=== PATIENT | female | born 1940 | race Caucasian/White ===

== ENCOUNTER 2021-03-07 13:27 | Inpatient (IN) | payer MEDICARE, OTHER ==
[~2021-03-07] VITALS: Ht 170.2 cm; Wt 79.4 kg
--- NOTE | 2021-03-07 13:40 | NUR ---
at bedside for assessment
[2021-03-07 14:10] LABS: *BILIRUBIN,URIN NEGATIVE (NEGATIVE); *BLOOD, URINE NEGATIVE (NEGATIVE); *CLARITY,URINE SLIGHTLY CLOUDY (CLEAR); *COLOR,URINE YELLOW (YELLOW); *KETONES,URINE NEGATIVE (NEGATIVE); *UROBILINOGEN,URINE 0.2 E.U./dl (NORMAL); LEUKOCYTE ESTERASE ,URINE 2+ (NEGATIVE); NITRITE, URINE NEGATIVE (NEGATIVE); UGLUCOSE NEGATIVE (NEGATIVE)
[2021-03-07 14:11] LABS: BASOPHILS # (AUTO) 0.1 K/uL (0.0-8.0); BASOPHILS % (AUTO) 0.9 % (0.0-2.0); EOSINOPHILS # (AUTO) 0.2 K/uL (0.0-0.7); EOSINOPHILS % (AUTO) 2.4 % (0.0-7.0); HEMATOCRIT 36.2 % (31.2-41.9); LYMPHOCYTES # (AUTO) 3.2 K/uL (20.0-40.0); LYMPHOCYTES % (AUTO) 37.3 % (20.5-51.5); MEAN CORPUSCULAR HEMOGLOBIN 30.6 uug (24.7-32.8); MEAN CORPUSCULAR HGB CONC 33 g/dL (32.3-35.6); MEAN CORPUSCULAR VOLUME 91.9 fL (75.5-95.3); MONOCYTES # (AUTO) 0.8 K/uL (2.0-10.0); MONOCYTES % (AUTO) 9.7 % (0.0-11.0); NEUTROPHILS # (AUTO) 4.3 K/uL (1.8-8.9); NEUTROPHILS % (AUTO) 49.7 % (38.5-71.5); PLATELET COUNT (AUTO) 338 K/uL (179-408); RED BLOOD CELL COUNT(AUTO) 3.94 MIL/uL (3.63-4.92); WHITE BLOOD COUNT (AUTO) 8.5 K/uL (3.8-11.8)
[2021-03-07] MEDS ORDERED: CALC500T13 PO (14:13)
[2021-03-07] MEDS ORDERED: MONT10TA33 PO (14:13)
[2021-03-07] MEDS ORDERED: ATOR40TA PO (14:13)
[2021-03-07] MEDS ORDERED: DONE5TAB7 PO (14:13)
[2021-03-07] MEDS ORDERED: PHEN-704 PO (14:13)
[2021-03-07] MEDS ORDERED: MELA1TAB17 PO (14:13)
[2021-03-07] MEDS ORDERED: CRAN450T9 PO (14:13)
[2021-03-07] MEDS ORDERED: SENN-261 PO (14:13)
[2021-03-07] MEDS ORDERED: FENO54TA PO (14:13)
[2021-03-07] MEDS ORDERED: METO-357 PO (14:13)
[2021-03-07] MEDS ORDERED: ASCO500T10 PO (14:13)
[2021-03-07] MEDS ORDERED: DOXA4TAB2 PO (14:13)
[2021-03-07] MEDS ORDERED: DIVA250T4 PO (14:13)
[2021-03-07 14:21] LABS: *AMPHETAMINE, URINE NEGATIVE (NEGATIVE); *CANNABINOID, URINE NEGATIVE (NEGATIVE); *COCCAINE, URINE NEGATIVE (NEGATIVE); *OPIATE, URINE NEGATIVE (NEGATIVE); *PHENCYCLIDINE SCREEN,URINE NEGATIVE (NEGATIVE)
[2021-03-07 14:24] LABS: CARBON DIOXIDE 23 mmol/L (21-32); CHLORIDE 102 mmol/L (98-107); CREATININE 1.2 mg/dL (0.6-1.3); GLUCOSE 103 mg/dL (74-106); POTASSIUM 4.3 mmol/L (3.5-5.1); UREA NITROGEN, BLOOD 22 mg/dL (7-18)
[2021-03-07 14:30] LABS: ACETAMINOPHEN < 2.0 ug/mL (10-30); ALANINE AMINOTRANSFERASE 29 U/L (14-59); ALKALINE PHOSPHATASE 42 U/L (50-136); ASPARTATE AMINOTRANSFERASE 22 U/L (15-37); BILIRUBIN,DIRECT 0.1 mg/dL (0.0-0.2); BILIRUBIN,TOTAL 0.4 mg/dL (0.2-1.0); ETHANOL < 3 MG/DL (0-0); TOTAL PROTEIN, SERUM 7.6 g/dL (6.4-8.2)
--- NOTE | 2021-03-07 16:20 | NUR ---
Yari womack in [facility] - 03/07/21 at 1630 by CHANDRIKA JALEN Young, evaluated pt, is writing a 2380 hold for pt.
[2021-03-07 16:25] LABS: BACTERIA,URINE FEW /HPF (NONE SEEN); RBC,URINE 0-3 /HPF (0-3); SQUAMOUS EPITHELIAL CELL,UR FEW /HPF (NONE SEEN); WBC,URINE TNTC /HPF (0-3)
[2021-03-07] MEDS ORDERED: MAG HYDROX/AL HYDROX/SIMETH 30 ML LIQUID UDC PO PRN (16:45)
[2021-03-07] MEDS ORDERED: MAGNESIUM HYDROXIDE 30 ML LIQUID UDC PO PRN (16:45)
--- NOTE | 2021-03-07 16:50 | NUR ---
Gps/Rn Complex Care- Received report from ER Nurse Teresa. Admitted 80 years old female from ER via wheel chair. Alert, oriented x 2, anxious, worried, reassured. Oriented to unit settings. Ambulated on the hallway to the dinning room , gait slightly unsteady r/t gen weakness. Patient denies any S.I/no H.I. Patient was swabbed for MRSA . Noted forgetfulness, verbal cues was given. Per patient, wants Vilma(daughter) as the route driver salesperson, but she does not remember the phone number, patient verbalized feelings of getting frustrated when she does note remember things. Safety reviewed. Routine admission care .
[2021-03-07 17:30] VITALS: BP 157/70
--- NOTE | 2021-03-07 17:30 | NUR ---
Pt. admitted to MHU, under care of Dr. Silver Belongs List completed and belongings sent
[2021-03-07] MEDS: CEphaleXIN 500 MG CAPSULE PO SCH (19:09)
[2021-03-07 20:06] VITALS: BP 117/63
[2021-03-07] MEDS: TEMAZEPAM 7.5 MG CAPSULE PO PRN (21:07)
[2021-03-07] MEDS: ACETAMINOPHEN 325 MG TABLET PO PRN (21:07)
[2021-03-07] MEDS ORDERED: PHENAZOPYRIDINE HCL 100 MG TABLET PO PRN (22:00)
--- NOTE | 2021-03-08 06:25 | NUR ---
PATIENT ALERT ORIENTED, NO COMPLAIN OF PAIN AT THIS TIME. PATIENT ASSISTED WITH ADL'S, PANTS GOT WET, ASSIST WITH HERMILO CARE, GIVEN CLEAN PANTS, AND BED LINEN WAS CHANGED. PATIENT HAS EPISODE OF CRYING, DON'T WANT STAY HERE. PATIENT WAS REORIENTED WHY SHE'S HERE, AND ABLE TO UNDERSTAND. PATIENT SLEPT MOST OF THE NIGHT, CONT TO MONITOR.
[2021-03-08 07:30] VITALS: BP 158/79
[2021-03-08] MEDS: CALCIUM CARBONATE 500 MG TAB.CHEW PO SCH ×3 (08:51→17:37)
[2021-03-08 08:52] LABS: BILIRUBIN,TOTAL 0.4 mg/dL (0.2-1.0); CREATININE 1.3 mg/dL (0.6-1.3); POTASSIUM 4.5 mmol/L (3.5-5.1)
[2021-03-08] MEDS: CEphaleXIN 500 MG CAPSULE PO SCH ×2 (08:53→17:36)
[2021-03-08] MEDS: DONEPEZIL 5 MG TABLET PO SCH (08:54)
[2021-03-08] MEDS: MONTELUKAST SODIUM 10 MG TABLET PO SCH (08:54)
[2021-03-08] MEDS: SENNOSIDES 1 TABLET PO SCH (08:54)
[2021-03-08] MEDS: METOPROLOL SUCCINATE XL 50 MG TAB.SR.24H PO SCH (08:54)
[2021-03-08] MEDS: ASCORBIC ACID 500 MG TABLET PO SCH ×2 (08:54→17:36)
[2021-03-08] MEDS: DOXAZOSIN 2 MG TABLET PO SCH (08:55)
--- NOTE | 2021-03-08 10:00 | NUR ---
Gps/Multi Spindle Operator- Claimed she slept fairly well last night, reviewed am meds, verbalized understanding , claimed had crying spells last night , bed not comfortable, and she's cold offered , offered extra blankets. Stayed up in her wheel chair, claimed she's hopping her roommate does not come back , claimed she does not like her roommate she came from the same facility where she came from per pt. Encouraged staying in the activity room during the day time.
[2021-03-08] MEDS: DIVALPROEX 250 MG TABLET.DR PO SCH ×2 (12:20→17:37)
[2021-03-08] MEDS: FENOFIBRATE NANOCRYSTALLIZED 48 MG TABLET PO SCH (12:20)
--- NOTE | 2021-03-08 12:56 | NUR ---
Gps/forklift supervisor- Evaluated by PWilderT. ambulated with FWW. , will continue to follow patient for tx.. Teachey self around with her wheel chair, cooperative with staff, meds. compliant
[2021-03-08 16:00] VITALS: BP 122/74
[2021-03-08] MEDS: ATORVASTATIN 40 MG TABLET PO SCH (17:36)
[2021-03-08 20:15] VITALS: BP 139/60
[2021-03-08] MEDS: ACETAMINOPHEN 325 MG TABLET PO PRN (20:17)
[2021-03-08] MEDS: LORAZEPAM 0.5 MG TABLET PO PRN (21:37)
[2021-03-08] MEDS: TEMAZEPAM 7.5 MG CAPSULE PO PRN (21:57)
--- NOTE | 2021-03-09 06:35 | NUR ---
PT USES HER ON WHEELCHAIR. PT CAN AMBULATE STEADY TO HER WHEELCHAIR TO HER BED. PT IN NO ACUTE DISTRESS. WILL CONTINUE TO MONITOR.
--- NOTE | 2021-03-09 06:36 | NUR ---
PT SLEPT 6 H.PT IN NO ACUTE DISTRESS. PRESCRIBED MEDICATION GIVEN AND PT TOLERATED IT WELL.PT GIVEN TYLENOL PRN AT 2017H FOR PAIN. PT GIVEN ATIVAN PRN AT 2136H FOR AGITATION AND RESTLESSNESS. RESTORIL PRN GIVEN AT 2156H PER PT REQUEST.PT VITAL SIGNS STABLE. AFTER AN HOUR PT IS CALMER AND ON HER BED, TALKING WITH HER ROOMMATE. SAFETY AND COMFORT PROVIDED. ALL NEEDS ARE MET. WILL ENDORSE TO INCOMING NURSE FOR CONTINUITY OF CARE.
[2021-03-09 07:30] VITALS: BP 162/78
[2021-03-09] MEDS: METOPROLOL SUCCINATE XL 50 MG TAB.SR.24H PO SCH (09:12)
[2021-03-09] MEDS: ASCORBIC ACID 500 MG TABLET PO SCH ×2 (09:12→17:17)
[2021-03-09] MEDS: CEphaleXIN 500 MG CAPSULE PO SCH ×2 (09:12→17:17)
[2021-03-09] MEDS: DOXAZOSIN 2 MG TABLET PO SCH (09:16)
[2021-03-09] MEDS: DONEPEZIL 5 MG TABLET PO SCH (09:16)
[2021-03-09] MEDS: FENOFIBRATE NANOCRYSTALLIZED 48 MG TABLET PO SCH (09:16)
[2021-03-09] MEDS: DIVALPROEX 250 MG TABLET.DR PO SCH ×3 (09:16→17:17)
[2021-03-09] MEDS: SENNOSIDES 1 TABLET PO SCH (09:16)
[2021-03-09] MEDS: MONTELUKAST SODIUM 10 MG TABLET PO SCH (09:16)
[2021-03-09] MEDS: CALCIUM CARBONATE 500 MG TAB.CHEW PO SCH ×3 (09:24→17:17)
[2021-03-09 16:00] VITALS: BP 138/75
[2021-03-09] MEDS: ATORVASTATIN 40 MG TABLET PO SCH (17:17)
[2021-03-09 20:01] VITALS: BP 142/72
--- NOTE | 2021-03-10 07:09 | NUR ---
PATIENT ALERT, COOPERATIVE WITH CARE AND MEDICATIONS. PATIENT SLEPT FOR 6 HRS, HAD SHOWER THIS MORNING, AND HAD BM. PATIENT HAS EPISODE OF SADNESS DUE TO ADMITTED HERE IN MHU, REDIRECT AND REORIENT PATIENT THAT SHE HERE TEMPORARILY, ATTEND ALL NEEDS.
[2021-03-10 07:30] VITALS: BP 105/66
[2021-03-10] MEDS: CEphaleXIN 500 MG CAPSULE PO SCH ×2 (08:34→16:19)
[2021-03-10] MEDS: DIVALPROEX 250 MG TABLET.DR PO SCH ×3 (08:34→16:19)
[2021-03-10] MEDS: ASCORBIC ACID 500 MG TABLET PO SCH ×2 (08:34→16:20)
[2021-03-10] MEDS: DONEPEZIL 5 MG TABLET PO SCH (08:35)
[2021-03-10] MEDS: CALCIUM CARBONATE 500 MG TAB.CHEW PO SCH ×3 (08:35→16:20)
[2021-03-10] MEDS: FENOFIBRATE NANOCRYSTALLIZED 48 MG TABLET PO SCH (08:39)
[2021-03-10] MEDS: MONTELUKAST SODIUM 10 MG TABLET PO SCH (08:39)
[2021-03-10] MEDS: METOPROLOL SUCCINATE XL 50 MG TAB.SR.24H PO SCH ×2 (08:40→08:51)
[2021-03-10] MEDS: SENNOSIDES 1 TABLET PO SCH (08:46)
[2021-03-10] MEDS: DOXAZOSIN 2 MG TABLET PO SCH (08:50)
--- NOTE | 2021-03-10 09:13 | NUR ---
Firearms Report: Circle Shear Operator completed and submitted a [employer] firearms report for 5150 grave disability certifications. A copy of report has been placed in patient chart.
[2021-03-10] MEDS: ACETAMINOPHEN 325 MG TABLET PO PRN ×2 (09:44→23:37)
--- NOTE | 2021-03-10 10:57 | NUR ---
JALEN Initial Discharge Plan: Patient currently resides at [facility] [place] [address] ([phone]) and would like to return upon discharge. JALEN spoke with Alesha from the facility who confirmed that patient is welcome back at discharge. JALEN will continue to work with patient, family, and MD to ensure a safe and proper discharge plan.
--- NOTE | 2021-03-10 10:58 | NUR ---
JALEN SNF Contact: JALEN spoke with Alesha from [facility] ([phone]) who confirmed patient is welcome back upon discharge.
--- NOTE | 2021-03-10 11:10 | NUR ---
JALEN Family Contact: JALEN spoke with patient's daughterAlyse ([phone]) and discussed treatment and discharge plan.
[2021-03-10 15:46] VITALS: BP 136/74
[2021-03-10] MEDS: ATORVASTATIN 40 MG TABLET PO SCH ×2 (16:19→17:03)
[2021-03-10 19:30] VITALS: BP 137/64
[2021-03-10] MEDS: TEMAZEPAM 7.5 MG CAPSULE PO PRN (23:38)
--- NOTE | 2021-03-11 05:54 | NUR ---
Shift End Report: Been in the hallway most of the night in her wheel chair, refused to get inside her room, thinking/knowing that her roommate still awake. Sleeping medication was given and Tylenol for her lower back pain, both effective. Slept 5 hours. Continue care as planned.
[2021-03-11 07:30] VITALS: BP 122/74
--- NOTE | 2021-03-11 07:30 | NUR ---
Patient received sitting in wheelchair in TV room. Calm and cooperative. Patient started tearing up when explaining how happy she was to have a roommate from her facility.
[2021-03-11] MEDS: DONEPEZIL 5 MG TABLET PO SCH (08:49)
[2021-03-11] MEDS: METOPROLOL SUCCINATE XL 50 MG TAB.SR.24H PO SCH (08:49)
[2021-03-11] MEDS: DIVALPROEX 250 MG TABLET.DR PO SCH ×3 (08:49→16:56)
[2021-03-11] MEDS: ASCORBIC ACID 500 MG TABLET PO SCH ×2 (08:49→16:56)
[2021-03-11] MEDS: CEphaleXIN 500 MG CAPSULE PO SCH ×2 (08:49→16:56)
[2021-03-11] MEDS: DOXAZOSIN 2 MG TABLET PO SCH (08:50)
[2021-03-11] MEDS: MONTELUKAST SODIUM 10 MG TABLET PO SCH (08:50)
[2021-03-11] MEDS: FENOFIBRATE NANOCRYSTALLIZED 48 MG TABLET PO SCH (08:50)
[2021-03-11] MEDS: CALCIUM CARBONATE 500 MG TAB.CHEW PO SCH ×3 (08:50→16:56)
[2021-03-11] MEDS: SENNOSIDES 1 TABLET PO SCH (08:57)
[2021-03-11 15:25] VITALS: BP 111/63
[2021-03-11] MEDS: ATORVASTATIN 40 MG TABLET PO SCH (17:00)
--- NOTE | 2021-03-11 18:20 | NUR ---
Patient has been calm and compliant throughout shift. Patient has spend most of her time in the dinning room. She states she is not comfortable with roommate. Patient is compliant with medications. Safety measures implemented. Will endorse to next shift.
[2021-03-11 20:08] VITALS: BP 121/61
[2021-03-11] MEDS: TEMAZEPAM 7.5 MG CAPSULE PO PRN (21:40)
--- NOTE | 2021-03-12 01:50 | NUR ---
RECEIVED PATIENT IN ACTIVITY ROOM IN A W/C. CALM AND COOPERATIVE WITH CARE AND MEDICATIONS. CLAIMS THE ROOMMATE DEPRIVES HER OF SLEEP SHE KEEPS TALKING. RE DIRECTED VISUAL CHECKS MADE ON HER FOR SAFETY. WILL CONTINUE TO MONITOR.
--- NOTE | 2021-03-12 05:58 | NUR ---
SLEPT WELL FOR 7;00 HOURS.
[2021-03-12 07:30] VITALS: BP 138/66
[2021-03-12] MEDS: CALCIUM CARBONATE 500 MG TAB.CHEW PO SCH ×3 (08:54→16:51)
[2021-03-12] MEDS: MONTELUKAST SODIUM 10 MG TABLET PO SCH (08:54)
[2021-03-12] MEDS: CEphaleXIN 500 MG CAPSULE PO SCH ×2 (08:54→16:39)
[2021-03-12] MEDS: ASCORBIC ACID 500 MG TABLET PO SCH ×2 (08:54→16:39)
[2021-03-12] MEDS: DOXAZOSIN 2 MG TABLET PO SCH (08:55)
[2021-03-12] MEDS: FENOFIBRATE NANOCRYSTALLIZED 48 MG TABLET PO SCH (08:55)
[2021-03-12] MEDS: DIVALPROEX 250 MG TABLET.DR PO SCH ×3 (08:55→16:39)
[2021-03-12] MEDS: METOPROLOL SUCCINATE XL 50 MG TAB.SR.24H PO SCH (08:55)
[2021-03-12] MEDS: DONEPEZIL 5 MG TABLET PO SCH (08:55)
[2021-03-12] MEDS: SENNOSIDES 1 TABLET PO SCH (08:57)
--- NOTE | 2021-03-12 12:49 | NUR ---
Court Hearing: Patient's court hearing was today and it was upheld for GD.
[2021-03-12 16:00] VITALS: BP 142/66
[2021-03-12] MEDS: ATORVASTATIN 40 MG TABLET PO SCH (17:13)
[2021-03-12 20:33] VITALS: BP 158/67
--- NOTE | 2021-03-12 22:00 | NUR ---
Patient refused to sleep in her room. Patient does get alone with roommate, reassure patient that roommate will not harm her, but refused .. Prefer to stay in the nursing station, given patient reclining chair to that she can sleep. Patient given melatonin as ordered, no complain of pain. cont to monitor.
--- NOTE | 2021-03-12 23:20 | NUR ---
PATIENT REFUSED RESTORIL MEDICATION PREFER MELATONIN, AND REQUEST FOR ARTIFICIAL TEARS. NOTIFY RIOS GUAMAN WITH ORDER.
[2021-03-12] MEDS ORDERED: POLYVINYL ALCOHOL OPHT DROPS 15 ML BOTTLE EACHEYE PRN (23:30)
[2021-03-12] MEDS: MELATONIN 3 MG TABLET PO PRN (23:56)
--- NOTE | 2021-03-13 05:59 | NUR ---
Patient slept for 3 hrs. Patient cooperative with medication and care. Patient was assisted with toileting, cont to monitor.
[2021-03-13 07:30] VITALS: BP 160/88
[2021-03-13 08:29] LABS: BASOPHILS # (AUTO) 0.1 K/uL (0.0-8.0); BASOPHILS % (AUTO) 0.9 % (0.0-2.0); EOSINOPHILS # (AUTO) 0.3 K/uL (0.0-0.7); EOSINOPHILS % (AUTO) 3.7 % (0.0-7.0); HEMATOCRIT 38.4 % (31.2-41.9); HEMOGLOBIN 12.7 g/dL (10.9-14.3); LYMPHOCYTES % (AUTO) 39.2 % (20.5-51.5); MEAN CORPUSCULAR HEMOGLOBIN 30.5 uug (24.7-32.8); MEAN CORPUSCULAR HGB CONC 33 g/dL (32.3-35.6); MEAN CORPUSCULAR VOLUME 91.7 fL (75.5-95.3); MONOCYTES # (AUTO) 0.8 K/uL (2.0-10.0); MONOCYTES % (AUTO) 10.2 % (0.0-11.0); NEUTROPHILS # (AUTO) 3.6 K/uL (1.8-8.9); PLATELET COUNT (AUTO) 329 K/uL (179-408); RED BLOOD CELL COUNT(AUTO) 4.18 MIL/uL (3.63-4.92); WHITE BLOOD COUNT (AUTO) 7.8 K/uL (3.8-11.8)
[2021-03-13 08:32] LABS: BILIRUBIN,TOTAL 0.4 mg/dL (0.2-1.0); CREATININE 1.3 mg/dL (0.6-1.3); POTASSIUM 3.7 mmol/L (3.5-5.1); TOTAL PROTEIN, SERUM 8.3 g/dL (6.4-8.2)
[2021-03-13] MEDS: CALCIUM CARBONATE 500 MG TAB.CHEW PO SCH ×3 (08:36→17:40)
[2021-03-13] MEDS: METOPROLOL SUCCINATE XL 50 MG TAB.SR.24H PO SCH (08:37)
[2021-03-13] MEDS: SENNOSIDES 1 TABLET PO SCH (08:37)
[2021-03-13] MEDS: DIVALPROEX 250 MG TABLET.DR PO SCH ×3 (08:37→17:41)
[2021-03-13] MEDS: CEphaleXIN 500 MG CAPSULE PO SCH ×2 (08:37→17:40)
[2021-03-13] MEDS: MONTELUKAST SODIUM 10 MG TABLET PO SCH (08:37)
[2021-03-13] MEDS: FENOFIBRATE NANOCRYSTALLIZED 48 MG TABLET PO SCH (08:37)
[2021-03-13] MEDS: DOXAZOSIN 2 MG TABLET PO SCH (08:38)
[2021-03-13] MEDS: ASCORBIC ACID 500 MG TABLET PO SCH ×2 (08:38→17:41)
[2021-03-13] MEDS: DONEPEZIL 5 MG TABLET PO SCH (08:38)
--- NOTE | 2021-03-13 13:00 | NUR ---
Gps/Spareribs Trimmer- Stayed up in her own wheel chair, wheeling self around the unit , stayed in the activity room most of the time. attending her group therapy. Had bladder incontinence , wears diaper, offered to be toileted at a regular intervals .
[2021-03-13 16:29] VITALS: BP 109/64
--- NOTE | 2021-03-13 16:47 | NUR ---
Gps/Senior Systems Programmer- Remains up in her wheel chair, refusing to go to her room to rest, claimed she does not want to see her roommate, claimed " she's trying to brenda me"
[2021-03-13] MEDS: ATORVASTATIN 40 MG TABLET PO SCH (17:40)
[2021-03-13 20:08] VITALS: BP 142/68
--- NOTE | 2021-03-13 21:21 | NUR ---
Asleep upon initial rounds. No acute distress noted. Patient easily arousable. VSS. No agitation noted. Will monitor patient. Needs attended. Kept comfortable.
[2021-03-14] MEDS: LORAZEPAM 0.5 MG TABLET PO PRN ×2 (02:49→21:42)
--- NOTE | 2021-03-14 06:16 | NUR ---
End of shift notes:Quiet night. Calm and cooperative. No behavioral issues noted. Slept for 5 hours. VSS. Had shower this am. Attended to needs. Kept comfortable.
[2021-03-14 07:30] VITALS: BP 100/48
[2021-03-14] MEDS: DIVALPROEX 250 MG TABLET.DR PO SCH ×3 (08:54→16:39)
[2021-03-14] MEDS: ASCORBIC ACID 500 MG TABLET PO SCH ×2 (08:54→16:39)
[2021-03-14] MEDS: CEphaleXIN 500 MG CAPSULE PO SCH (08:54)
[2021-03-14] MEDS: CALCIUM CARBONATE 500 MG TAB.CHEW PO SCH ×3 (08:54→16:40)
[2021-03-14] MEDS: DOXAZOSIN 2 MG TABLET PO SCH (08:55)
[2021-03-14] MEDS: DONEPEZIL 5 MG TABLET PO SCH (08:55)
[2021-03-14] MEDS: MONTELUKAST SODIUM 10 MG TABLET PO SCH (08:56)
[2021-03-14] MEDS: SENNOSIDES 1 TABLET PO SCH (08:56)
[2021-03-14] MEDS: METOPROLOL SUCCINATE XL 50 MG TAB.SR.24H PO SCH (08:57)
[2021-03-14] MEDS: FENOFIBRATE NANOCRYSTALLIZED 48 MG TABLET PO SCH (09:09)
[2021-03-14 16:13] VITALS: BP 140/71
[2021-03-14] MEDS: ATORVASTATIN 40 MG TABLET PO SCH (17:11)
[2021-03-14 20:19] VITALS: BP 142/62
[2021-03-14] MEDS: ACETAMINOPHEN 325 MG TABLET PO PRN (21:42)
[2021-03-14] MEDS: MELATONIN 3 MG TABLET PO PRN (21:42)
--- NOTE | 2021-03-15 06:09 | NUR ---
Patient received AOx4 sitting in her wheelchair in the hallway, no distress noted. Pt denies SI, HI, AH. or VH. Very pleasant and cooperative with this freelance copywriter. Melatonin requested for sleep aid prior to going to bed, to which patient slept a total of 7.00 hours. Safety precautions kept in place throughout the shift. No other issues or concerns at this time, will endorse to day shift.
[2021-03-15 07:30] VITALS: BP 116/84
--- NOTE | 2021-03-15 07:30 | NUR ---
received report from MELVA trejo. All questions, comments, and concerns were addressed. received patient awake in assigned room.
[2021-03-15] MEDS: CALCIUM CARBONATE 500 MG TAB.CHEW PO SCH ×3 (08:08→16:48)
[2021-03-15] MEDS: MONTELUKAST SODIUM 10 MG TABLET PO SCH (08:09)
[2021-03-15] MEDS: DIVALPROEX 250 MG TABLET.DR PO SCH ×3 (08:09→16:48)
[2021-03-15] MEDS: DONEPEZIL 5 MG TABLET PO SCH (08:09)
[2021-03-15] MEDS: ASCORBIC ACID 500 MG TABLET PO SCH ×2 (08:09→16:48)
[2021-03-15] MEDS: SENNOSIDES 1 TABLET PO SCH (08:09)
[2021-03-15] MEDS: METOPROLOL SUCCINATE XL 50 MG TAB.SR.24H PO SCH (08:09)
[2021-03-15] MEDS: DOXAZOSIN 2 MG TABLET PO SCH (08:09)
[2021-03-15] MEDS: FENOFIBRATE NANOCRYSTALLIZED 48 MG TABLET PO SCH (08:17)
[2021-03-15 15:33] VITALS: BP 147/76
--- NOTE | 2021-03-15 17:58 | NUR ---
patient is alert and oriented. patient is anxious, depressed, sad, and very needy and intrusive with staff. patient has poor boundaries with staff. patient requires redirection and reality orientation. patient denies SI/HI, denies AH/VH. patient is adherent with medication, no adverse reaction noted. patient ambulates in wheelchair independently. patient provided with education about impulse control and to communicate needs to staff appropriately. patient encouraged to participate in the unit therapeutic milieu.
[2021-03-15] MEDS: ATORVASTATIN 40 MG TABLET PO SCH (18:03)
[2021-03-15] MEDS: MELATONIN 3 MG TABLET PO PRN (20:14)
[2021-03-15] MEDS: LORAZEPAM 0.5 MG TABLET PO PRN (20:14)
[2021-03-15 20:28] VITALS: BP 124/48
--- NOTE | 2021-03-16 06:00 | NUR ---
Received Pt resting in the shereen chair in the hallway. A+Ox3, anxious and upset on approach. Pt verbalized she was "having a hard time feeling safe and sleeping in my room because I'm scared of my roommate". Pt was move to an unoccupied room and expressed relief. Pt reports "some" depression nut denies SI and verbally contracts for safety. Prn Melatonin administered for insomnia and Ativan 0.5mg for anxiety, both with good effect. Denies pain, VS stable.
[2021-03-16 07:07] LABS: CREATININE 1.3 mg/dL (0.6-1.3); POTASSIUM 4.2 mmol/L (3.5-5.1)
[2021-03-16 08:00] VITALS: BP 161/79
[2021-03-16] MEDS: MONTELUKAST SODIUM 10 MG TABLET PO SCH (08:02)
[2021-03-16] MEDS: CALCIUM CARBONATE 500 MG TAB.CHEW PO SCH ×3 (08:02→16:35)
[2021-03-16] MEDS: ASCORBIC ACID 500 MG TABLET PO SCH ×2 (08:03→16:35)
[2021-03-16] MEDS: SENNOSIDES 1 TABLET PO SCH (08:04)
[2021-03-16] MEDS: METOPROLOL SUCCINATE XL 50 MG TAB.SR.24H PO SCH (08:04)
[2021-03-16] MEDS: FENOFIBRATE NANOCRYSTALLIZED 48 MG TABLET PO SCH (08:04)
[2021-03-16] MEDS: DIVALPROEX 250 MG TABLET.DR PO SCH ×3 (08:04→16:35)
[2021-03-16] MEDS: DONEPEZIL 5 MG TABLET PO SCH (08:04)
[2021-03-16] MEDS: DOXAZOSIN 2 MG TABLET PO SCH (08:05)
[2021-03-16 16:00] VITALS: BP 130/62
[2021-03-16] MEDS: ATORVASTATIN 40 MG TABLET PO SCH (16:36)
[2021-03-16 20:00] VITALS: BP 149/83
[2021-03-17 07:03] LABS: BASOPHILS # (AUTO) 0.1 K/uL (0.0-8.0); BASOPHILS % (AUTO) 0.8 % (0.0-2.0); EOSINOPHILS # (AUTO) 0.3 K/uL (0.0-0.7); EOSINOPHILS % (AUTO) 3.7 % (0.0-7.0); HEMATOCRIT 33.8 % (31.2-41.9); HEMOGLOBIN 11.7 g/dL (10.9-14.3); LYMPHOCYTES # (AUTO) 2.6 K/uL (20.0-40.0); LYMPHOCYTES % (AUTO) 33.2 % (20.5-51.5); MEAN CORPUSCULAR HEMOGLOBIN 31.2 uug (24.7-32.8); MEAN CORPUSCULAR HGB CONC 35 g/dL (32.3-35.6); MEAN CORPUSCULAR VOLUME 90.5 fL (75.5-95.3); MONOCYTES # (AUTO) 0.8 K/uL (2.0-10.0); MONOCYTES % (AUTO) 10.2 % (0.0-11.0); NEUTROPHILS % (AUTO) 52.1 % (38.5-71.5); PLATELET COUNT (AUTO) 278 K/uL (179-408); RED BLOOD CELL COUNT(AUTO) 3.73 MIL/uL (3.63-4.92); WHITE BLOOD COUNT (AUTO) 7.7 K/uL (3.8-11.8)
[2021-03-17 07:14] LABS: BILIRUBIN,TOTAL 0.3 mg/dL (0.2-1.0); CREATININE 1.3 mg/dL (0.6-1.3); MAGNESIUM 1.8 mg/dL (1.8-2.4); PHOSPHOROUS 3.1 mg/dL (2.5-4.9); TOTAL PROTEIN, SERUM 6.7 g/dL (6.4-8.2)
[2021-03-17 07:30] VITALS: BP 130/101
--- NOTE | 2021-03-17 07:30 | NUR ---
Received report from MELVA Gould. All questions, comments, and concerns. Received patient awake, alert and oriented in assigned room. Bed is in low and locked position.
[2021-03-17] MEDS: SENNOSIDES 1 TABLET PO SCH (08:00)
[2021-03-17] MEDS: DIVALPROEX 250 MG TABLET.DR PO SCH ×3 (08:00→16:34)
[2021-03-17] MEDS: DOXAZOSIN 2 MG TABLET PO SCH (08:00)
[2021-03-17] MEDS: DONEPEZIL 5 MG TABLET PO SCH (08:00)
[2021-03-17] MEDS: ASCORBIC ACID 500 MG TABLET PO SCH ×2 (08:00→16:34)
[2021-03-17] MEDS: METOPROLOL SUCCINATE XL 50 MG TAB.SR.24H PO SCH (08:01)
[2021-03-17] MEDS: MONTELUKAST SODIUM 10 MG TABLET PO SCH (08:02)
[2021-03-17] MEDS: FENOFIBRATE NANOCRYSTALLIZED 48 MG TABLET PO SCH (08:02)
[2021-03-17] MEDS: CALCIUM CARBONATE 500 MG TAB.CHEW PO SCH ×3 (08:02→16:34)
--- NOTE | 2021-03-17 11:06 | NUR ---
patient is alert and oriented. patient is anxious, appears depressed and sad. patient is needy and intrusive, patient has poor boundaries with staff. patient denies SI/HI, denies AH/VH. patient is adherent with medication, no adverse reaction noted. patient ambulates in wheelchair independently. she is able to tolerate food and fluids. able to perform self care and ADL's independently. patient provided with education about impulse control and to communicate needs to staff appropriately. patient encouraged to participate in the unit therapeutic milieu.
--- NOTE | 2021-03-17 12:53 | NUR ---
JALEN Family Contact: JALEN spoke with patients daughter, Vilma ([phone]) and informed of discharge plan tomorrow back to [facility]. Vilma is agreeable.
--- NOTE | 2021-03-17 12:54 | NUR ---
JALEN SNF Contact: JALEN spoke with Alesha from [facility] ([phone]) who confirmed patient is welcome back tomorrow and arranged transportation tomorrow at 11AM.
[2021-03-17 16:00] VITALS: BP 129/75
[2021-03-17] MEDS: ATORVASTATIN 40 MG TABLET PO SCH (17:03)
[2021-03-17 20:00] VITALS: BP 135/62
--- NOTE | 2021-03-18 06:23 | NUR ---
PATIENT AWAKE NO COMPLAIN OF PAIN, SLEPT MOST OF THE NIGHT, COOPERATIVE WITH CARE AND MEDICATION, CONT TO MONITOR.
[2021-03-18 07:30] VITALS: BP 136/53
--- NOTE | 2021-03-18 08:01 | NUR ---
SW Discharge Note: Patient will be discharged to [facility] ([phone]). Patient pickle maker is arranged by the facilitys transportation for today at 1:00pm. Glue Spreading Machine Operator spoke with Alesha ([phone]), marketing strategy lead, who stated patient can return to facility today. Patient is alert and oriented x3 and is not able to plan for self-care at this time but is willing to accept care provided for her at the facility. Patient denies any suicidal or homicidal ideations. Patient is aware and agreeable with discharge plans. Patient will follow up with Dr. Dickens (Electro Mechanical Solar Technician) and Dr. Dias (Psychiatrist) at [facility]. Patient presents with euthymic mood and congruent affect. Patients daughterVilma ([phone]) is aware and agreeable with discharge plan.
[2021-03-18] MEDS: SENNOSIDES 1 TABLET PO SCH (08:10)
[2021-03-18] MEDS: DIVALPROEX 250 MG TABLET.DR PO SCH ×2 (08:10→13:57)
[2021-03-18] MEDS: DONEPEZIL 5 MG TABLET PO SCH (08:10)
[2021-03-18] MEDS: ASCORBIC ACID 500 MG TABLET PO SCH (08:10)
[2021-03-18 08:11] VITALS: BP 136/53
[2021-03-18] MEDS: DOXAZOSIN 2 MG TABLET PO SCH (08:11)
[2021-03-18] MEDS: METOPROLOL SUCCINATE XL 50 MG TAB.SR.24H PO SCH (08:11)
[2021-03-18] MEDS: MONTELUKAST SODIUM 10 MG TABLET PO SCH (08:11)
[2021-03-18] MEDS: CALCIUM CARBONATE 500 MG TAB.CHEW PO SCH ×2 (08:12→12:00)
[2021-03-18] MEDS: FENOFIBRATE NANOCRYSTALLIZED 48 MG TABLET PO SCH (08:12)
--- NOTE | 2021-03-18 15:30 | NUR ---
[facility] transportation here to lemon picker patient. Pt is in no acute distress. Discharge instructions given to patient. Pt verbalized understanding. Report given to Monica FRYE from [facility]. PT denies any c/o pain.
== END 2021-03-18 15:30 | DRG 885 ==
LOC: ER 13:27 → GPS 16:38
PROVIDERS: ADMIT Psychiatry & Neurology Psychosomatic Medicine; ATTEND Nurse Practitioner Family
DX: F33.2 Major depressive disorder, recurrent severe without psychotic features (principal); N17.0 Acute kidney failure with tubular necrosis; N18.9 Chronic kidney disease, unspecified; G30.9 Alzheimer's disease, unspecified; F02.80 Dementia in other diseases classified elsewhere, unspecified severity, without behavioral disturbance, psychotic disturbance, mood disturbance, and anxiety; E78.5 Hyperlipidemia, unspecified; Z20.822 Contact with and (suspected) exposure to COVID-19; Z73.6 Limitation of activities due to disability; N13.9 Obstructive and reflux uropathy, unspecified; I12.9 Hypertensive chronic kidney disease with stage 1 through stage 4 chronic kidney disease, or unspecified chronic kidney disease
CPT/HCPCS: 36415; 76770; 80164; 83735; 83970; 84100; 84155; 84165; 85025; 87086; A4663; G0480; J3490

== ENCOUNTER 2023-12-10 17:33 | Inpatient (IN) | payer MEDICARE, OTHER ==
[~2023-12-10] VITALS: Ht 170.2 cm; Wt 79.4 kg
[~2023-12-10 17:33] MED LIST: ASCO500T10 PO; ATOR40TA PO; CALC500T13 PO; CRAN450T9 PO; DONE5TAB7 PO; DOXA4TAB2 PO; FENO54TA PO; MELA1TAB17 PO; METO-357 PO; MONT10TA33 PO; PHEN-704 PO; SENN-261 PO
[2023-12-10] MEDS ORDERED: CLONIDINE HCL 0.1 MG TABLET PO PRN (19:00)
[2023-12-10 19:15] VITALS: BP 192/76; TEMP 98.1; O2SAT 96
[2023-12-10 20:26] VITALS: BP 178/89; TEMP 98.1; O2SAT 95
[2023-12-10] MEDS ORDERED: ACETAMINOPHEN 325 MG TABLET PO PRN (21:00)
[2023-12-10] MEDS ORDERED: TEMAZEPAM 7.5 MG CAPSULE PO PRN (21:00)
[2023-12-10] MEDS ORDERED: MAG HYDROX/AL HYDROX/SIMETH 30 ML LIQUID UDC PO PRN (21:00)
[2023-12-10] MEDS ORDERED: MAGNESIUM HYDROXIDE 30 ML LIQUID UDC PO PRN (21:00)
[2023-12-10] MEDS: LORAZEPAM 1 MG TABLET PO PRN (21:21)
[2023-12-10 21:22] VITALS: BP 151/67; O2SAT 96
[2023-12-11] MEDS ORDERED: DIVA250T4 PO (00:23)
[2023-12-11 08:02] VITALS: BP 102/51; TEMP 98.2; O2SAT 98
[2023-12-11 08:34] LABS: BASOPHILS # (AUTO) 0.1 K/UL (0.0-0.2); BASOPHILS % (AUTO) 0.7 % (0.0-2.0); EOSINOPHILS # (AUTO) 0.2 K/uL (0.0-0.7); EOSINOPHILS % (AUTO) 2.3 % (0.0-7.0); HEMATOCRIT 33.3 % (31.2-41.9); HEMOGLOBIN 11.2 g/dL (10.9-14.3); LYMPHOCYTES % (AUTO) 21.5 % (20.5-51.5); MEAN CORPUSCULAR HGB CONC 34 g/dL (32.3-35.6); MEAN CORPUSCULAR VOLUME 86.3 fL (75.5-95.3); MONOCYTES # (AUTO) 0.8 K/uL (0.1-1.30); MONOCYTES % (AUTO) 8.5 % (0.0-11.0); NEUTROPHILS # (AUTO) 6.2 K/uL (1.8-8.9); PLATELET COUNT (AUTO) 372 K/uL (179-408); RED BLOOD CELL COUNT(AUTO) 3.86 MIL/uL (3.63-4.92); RED CELL DISTRIBUTION WIDTH 15.5 % (12.3-17.7); WHITE BLOOD COUNT (AUTO) 9.2 K/uL (3.8-11.8)
[2023-12-11 08:37] LABS: DIFFERENTIAL COMMENT 1
[2023-12-11 08:57] LABS: ALANINE AMINOTRANSFERASE 14 U/L (14-59); ALBUMIN 2.9 g/dL (3.4-5.0); ALKALINE PHOSPHATASE 62 U/L (50-136); ASPARTATE AMINOTRANSFERASE 9 U/L (15-37); BILIRUBIN,TOTAL 0.3 mg/dL (0.2-1.0); CALCIUM 8.7 mg/dL (8.5-10.1); CARBON DIOXIDE 25 mmol/L (21-32); CHLORIDE 106 mmol/L (98-107); CREATININE 1.3 mg/dL (0.6-1.3); GLUCOSE 106 mg/dL (74-106); POTASSIUM 4.2 mmol/L (3.5-5.1); SODIUM SERUM 140 mmol/L (136-145); UREA NITROGEN, BLOOD 26 mg/dL (7-18)
[2023-12-11] MEDS: METOPROLOL SUCCINATE XL 50 MG TAB.SR.24H PO SCH (09:45)
[2023-12-11] MEDS: CALCIUM CARBONATE 500 MG TAB.CHEW PO SCH ×2 (12:00→17:37)
[2023-12-11] MEDS: DIVALPROEX 250 MG TABLET.DR PO SCH ×2 (14:12→21:02)
[2023-12-11 16:17] VITALS: BP 145/61; TEMP 98.1; O2SAT 97
[2023-12-11] MEDS: ATORVASTATIN 40 MG TABLET PO SCH (17:37)
[2023-12-11] MEDS: DONEPEZIL 5 MG TABLET PO SCH (21:02)
[2023-12-11 22:00] VITALS: BP 140/60; TEMP 99.1; O2SAT 95
[2023-12-12] MEDS: CALCIUM CARBONATE 500 MG TAB.CHEW PO SCH ×3 (08:00→18:00)
[2023-12-12 08:26] VITALS: BP 156/93; TEMP 98.2; O2SAT 97
[2023-12-12] MEDS: DIVALPROEX 250 MG TABLET.DR PO SCH ×2 (08:55→20:46)
[2023-12-12] MEDS: DOXAZOSIN 2 MG TABLET PO SCH (08:59)
[2023-12-12] MEDS: SENNOSIDES 1 TABLET PO SCH (08:59)
[2023-12-12] MEDS: MONTELUKAST SODIUM 10 MG TABLET PO SCH (09:00)
[2023-12-12] MEDS ORDERED: DOXAZOSIN MESYLATE 4 MG PO SCH (09:00)
[2023-12-12] MEDS: FENOFIBRATE NANOCRYSTALLIZED 48 MG TABLET PO SCH ×2 (09:00→18:00)
[2023-12-12] MEDS ORDERED: FENOFIBRATE 54 MG PO SCH (09:00)
[2023-12-12] MEDS: METOPROLOL SUCCINATE XL 50 MG TAB.SR.24H PO SCH (09:04)
[2023-12-12] MEDS: LORAZEPAM 1 MG TABLET PO PRN (11:26)
[2023-12-12 16:47] VITALS: BP 128/50; TEMP 98; O2SAT 97
[2023-12-12] MEDS: ATORVASTATIN 40 MG TABLET PO SCH (18:00)
[2023-12-12 20:00] VITALS: BP 146/61; TEMP 97.8; O2SAT 97
[2023-12-12] MEDS: DONEPEZIL 5 MG TABLET PO SCH (20:48)
[2023-12-13 07:50] VITALS: BP 148/78; TEMP 98.1; O2SAT 96
[2023-12-13] MEDS: MONTELUKAST SODIUM 10 MG TABLET PO SCH (09:01)
[2023-12-13] MEDS: METOPROLOL SUCCINATE XL 50 MG TAB.SR.24H PO SCH (09:02)
[2023-12-13] MEDS: SENNOSIDES 1 TABLET PO SCH (09:02)
[2023-12-13] MEDS: DIVALPROEX 250 MG TABLET.DR PO SCH ×4 (09:02→21:05)
[2023-12-13] MEDS: DOXAZOSIN 2 MG TABLET PO SCH (09:02)
[2023-12-13] MEDS: CALCIUM CARBONATE 500 MG TAB.CHEW PO SCH ×3 (09:02→16:09)
[2023-12-13 16:13] VITALS: BP 151/76; TEMP 98; O2SAT 96
[2023-12-13] MEDS: ATORVASTATIN 40 MG TABLET PO SCH (17:51)
[2023-12-13 20:06] VITALS: BP 146/72; TEMP 98.1; O2SAT 95
[2023-12-13] MEDS: DONEPEZIL 5 MG TABLET PO SCH ×2 (21:00→21:05)
[2023-12-14 08:00] VITALS: BP 149/67; TEMP 98.2; O2SAT 97
[2023-12-14] MEDS: CALCIUM CARBONATE 500 MG TAB.CHEW PO SCH ×3 (08:39→17:49)
[2023-12-14] MEDS: DIVALPROEX 250 MG TABLET.DR PO SCH ×3 (09:26→20:44)
[2023-12-14] MEDS: FENOFIBRATE NANOCRYSTALLIZED 48 MG TABLET PO SCH (09:27)
[2023-12-14] MEDS: MONTELUKAST SODIUM 10 MG TABLET PO SCH (09:27)
[2023-12-14] MEDS: METOPROLOL SUCCINATE XL 50 MG TAB.SR.24H PO SCH (09:27)
[2023-12-14] MEDS: DOXAZOSIN 2 MG TABLET PO SCH (09:27)
[2023-12-14] MEDS: SENNOSIDES 1 TABLET PO SCH (09:27)
[2023-12-14 16:00] VITALS: BP 149/72; TEMP 98.8; O2SAT 95
[2023-12-14] MEDS: ATORVASTATIN 40 MG TABLET PO SCH (17:48)
[2023-12-14 19:41] VITALS: BP 146/68; TEMP 98.4; O2SAT 96
[2023-12-14] MEDS: DONEPEZIL 5 MG TABLET PO SCH (20:46)
[2023-12-15 08:00] VITALS: BP 157/86; TEMP 98; O2SAT 97
[2023-12-15] MEDS: CALCIUM CARBONATE 500 MG TAB.CHEW PO SCH ×3 (08:59→17:00)
[2023-12-15] MEDS: SENNOSIDES 1 TABLET PO SCH (09:00)
[2023-12-15] MEDS: DOXAZOSIN 2 MG TABLET PO SCH (09:00)
[2023-12-15] MEDS: DIVALPROEX 250 MG TABLET.DR PO SCH ×3 (09:00→20:25)
[2023-12-15] MEDS: METOPROLOL SUCCINATE XL 50 MG TAB.SR.24H PO SCH (09:01)
[2023-12-15] MEDS: MONTELUKAST SODIUM 10 MG TABLET PO SCH (09:08)
[2023-12-15] MEDS: FENOFIBRATE NANOCRYSTALLIZED 48 MG TABLET PO SCH (09:08)
[2023-12-15] MEDS: GLUCERNA SHAKE 237 ML CAN PO SCH (17:36)
[2023-12-15] MEDS: ATORVASTATIN 40 MG TABLET PO SCH (18:30)
[2023-12-15] MEDS: DONEPEZIL 5 MG TABLET PO SCH (20:25)
[2023-12-15 21:00] VITALS: BP 146/75; TEMP 98.2; O2SAT 98
[2023-12-15 21:01] VITALS: BP 118/65; TEMP 97.6; O2SAT 96
[2023-12-16] MEDS: LORAZEPAM 1 MG TABLET PO PRN (08:12)
[2023-12-16] MEDS: CALCIUM CARBONATE 500 MG TAB.CHEW PO SCH ×3 (08:12→17:43)
[2023-12-16] MEDS: SENNOSIDES 1 TABLET PO SCH (08:12)
[2023-12-16] MEDS: DIVALPROEX 250 MG TABLET.DR PO SCH ×3 (08:12→22:02)
[2023-12-16] MEDS: METOPROLOL SUCCINATE XL 50 MG TAB.SR.24H PO SCH (08:14)
[2023-12-16] MEDS: DOXAZOSIN 2 MG TABLET PO SCH (08:14)
[2023-12-16] MEDS: MONTELUKAST SODIUM 10 MG TABLET PO SCH (08:21)
[2023-12-16] MEDS: FENOFIBRATE NANOCRYSTALLIZED 48 MG TABLET PO SCH (08:21)
[2023-12-16 08:30] VITALS: BP 170/82; TEMP 97.3; O2SAT 98
[2023-12-16] MEDS: GLUCERNA SHAKE 237 ML CAN PO SCH ×2 (08:50→17:54)
[2023-12-16 11:09] LABS: *BILIRUBIN,URIN NEGATIVE (NEGATIVE); *BLOOD, URINE 1+ (NEGATIVE); *CLARITY,URINE CLOUDY (CLEAR); *COLOR,URINE YELLOW (YELLOW); *KETONES,URINE NEGATIVE (NEGATIVE); *PROTEIN,URINE 1+ (NEGATIVE); *UROBILINOGEN,URINE 0.2 E.U./dl (NORMAL); LEUKOCYTE ESTERASE ,URINE 3+ (NEGATIVE); NITRITE, URINE POSITIVE (NEGATIVE); PH,URINE 7.5 (5.0-8.0); UGLUCOSE NEGATIVE (NEGATIVE)
[2023-12-16 11:34] LABS: BACTERIA,URINE MANY /HPF (NONE SEEN); SQUAMOUS EPITHELIAL CELL,UR FEW /HPF (NONE SEEN); WBC,URINE TNTC /HPF (0-3)
[2023-12-16] MEDS ORDERED: CIPROFLOXACIN HCL 250 MG TABLET PO SCH (13:30)
[2023-12-16] MEDS: CEphaleXIN 500 MG CAPSULE PO SCH ×2 (13:56→22:02)
[2023-12-16] MEDS: PHENAZOPYRIDINE HCL 100 MG TABLET PO SCH ×2 (14:00→17:43)
[2023-12-16] MEDS: ATORVASTATIN 40 MG TABLET PO SCH (17:43)
[2023-12-16 20:00] VITALS: BP 135/71; TEMP 98.3; O2SAT 99
[2023-12-16] MEDS: DONEPEZIL 5 MG TABLET PO SCH (22:02)
[2023-12-17] MEDS: PHENAZOPYRIDINE HCL 100 MG TABLET PO SCH ×3 (06:20→20:29)
[2023-12-17] MEDS: GLUCERNA SHAKE 237 ML CAN PO SCH ×2 (08:00→17:00)
[2023-12-17 08:44] VITALS: BP 150/60; TEMP 98; O2SAT 99
[2023-12-17] MEDS: CALCIUM CARBONATE 500 MG TAB.CHEW PO SCH ×3 (09:11→17:05)
[2023-12-17] MEDS: CEphaleXIN 500 MG CAPSULE PO SCH ×2 (09:12→20:30)
[2023-12-17] MEDS: SENNOSIDES 1 TABLET PO SCH (09:12)
[2023-12-17] MEDS: DIVALPROEX 250 MG TABLET.DR PO SCH ×3 (09:12→20:29)
[2023-12-17] MEDS: METOPROLOL SUCCINATE XL 50 MG TAB.SR.24H PO SCH (09:12)
[2023-12-17] MEDS: FENOFIBRATE NANOCRYSTALLIZED 48 MG TABLET PO SCH (10:31)
[2023-12-17] MEDS: MONTELUKAST SODIUM 10 MG TABLET PO SCH (10:31)
[2023-12-17] MEDS: DOXAZOSIN 2 MG TABLET PO SCH (10:58)
[2023-12-17] MEDS ORDERED: REMEDY ESSENTIAL ZINC PASTE 113 GM TOP PRN (17:00)
[2023-12-17] MEDS: ATORVASTATIN 40 MG TABLET PO SCH (17:10)
[2023-12-17 17:51] VITALS: BP 120/77; TEMP 98.1
[2023-12-17] MEDS: DONEPEZIL 5 MG TABLET PO SCH (20:29)
[2023-12-17 21:29] VITALS: BP 135/69; TEMP 98; O2SAT 97
[2023-12-18] MEDS: PHENAZOPYRIDINE HCL 100 MG TABLET PO SCH ×2 (05:39→15:33)
[2023-12-18] MEDS: CALCIUM CARBONATE 500 MG TAB.CHEW PO SCH ×3 (08:00→18:03)
[2023-12-18] MEDS: GLUCERNA SHAKE 237 ML CAN PO SCH ×2 (08:00→18:05)
[2023-12-18 08:10] VITALS: BP 105/69; TEMP 98.5; O2SAT 95
[2023-12-18] MEDS: METOPROLOL SUCCINATE XL 50 MG TAB.SR.24H PO SCH ×2 (09:00→15:29)
[2023-12-18] MEDS: DOXAZOSIN 2 MG TABLET PO SCH ×2 (09:00→15:33)
[2023-12-18] MEDS: DIVALPROEX 250 MG TABLET.DR PO SCH ×3 (09:00→20:37)
[2023-12-18] MEDS: CEphaleXIN 500 MG CAPSULE PO SCH ×3 (09:00→20:38)
[2023-12-18] MEDS: FENOFIBRATE NANOCRYSTALLIZED 48 MG TABLET PO SCH ×2 (09:00→15:30)
[2023-12-18] MEDS: MONTELUKAST SODIUM 10 MG TABLET PO SCH ×2 (09:00→15:30)
[2023-12-18] MEDS: SENNOSIDES 1 TABLET PO SCH ×2 (09:00→15:31)
[2023-12-18] MEDS ORDERED: METOPROLOL TARTRATE 25 MG TABLET PO SCH (09:45)
[2023-12-18 15:09] VITALS: BP 141/65; TEMP 98.5; O2SAT 95
[2023-12-18] MEDS: ATORVASTATIN 40 MG TABLET PO SCH (18:03)
[2023-12-18 20:00] VITALS: BP 146/63; TEMP 98.1; O2SAT 97
[2023-12-18] MEDS: DONEPEZIL 5 MG TABLET PO SCH (20:37)
[2023-12-19 08:33] VITALS: BP 132/61; TEMP 98.1; O2SAT 95
[2023-12-19] MEDS: METOPROLOL SUCCINATE XL 50 MG TAB.SR.24H PO SCH (08:52)
[2023-12-19] MEDS: CALCIUM CARBONATE 500 MG TAB.CHEW PO SCH ×3 (08:52→17:08)
[2023-12-19] MEDS: GLUCERNA SHAKE 237 ML CAN PO SCH ×2 (08:53→17:12)
[2023-12-19] MEDS: CEphaleXIN 500 MG CAPSULE PO SCH ×2 (08:53→20:31)
[2023-12-19] MEDS: DIVALPROEX 250 MG TABLET.DR PO SCH ×3 (08:53→20:31)
[2023-12-19] MEDS: SENNOSIDES 1 TABLET PO SCH (08:53)
[2023-12-19] MEDS: FENOFIBRATE NANOCRYSTALLIZED 48 MG TABLET PO SCH (08:53)
[2023-12-19] MEDS: DOXAZOSIN 2 MG TABLET PO SCH (08:53)
[2023-12-19] MEDS: MONTELUKAST SODIUM 10 MG TABLET PO SCH (08:53)
[2023-12-19] MEDS: ATORVASTATIN 40 MG TABLET PO SCH (17:08)
[2023-12-19 18:05] VITALS: BP 104/53; TEMP 98.2; O2SAT 96
[2023-12-19 20:05] VITALS: BP 111/52; TEMP 98.1; O2SAT 96
[2023-12-19] MEDS: DONEPEZIL 5 MG TABLET PO SCH (20:31)
[2023-12-20 07:56] VITALS: BP 134/71; TEMP 99.1; O2SAT 98
[2023-12-20] MEDS: CALCIUM CARBONATE 500 MG TAB.CHEW PO SCH ×3 (08:23→17:51)
[2023-12-20] MEDS: GLUCERNA SHAKE 237 ML CAN PO SCH ×2 (08:23→17:51)
[2023-12-20] MEDS: FENOFIBRATE NANOCRYSTALLIZED 48 MG TABLET PO SCH (10:55)
[2023-12-20] MEDS: SENNOSIDES 1 TABLET PO SCH (10:56)
[2023-12-20] MEDS: CEphaleXIN 500 MG CAPSULE PO SCH (10:56)
[2023-12-20] MEDS: METOPROLOL SUCCINATE XL 50 MG TAB.SR.24H PO SCH (10:56)
[2023-12-20] MEDS: DIVALPROEX 250 MG TABLET.DR PO SCH ×3 (10:57→21:04)
[2023-12-20] MEDS: DOXAZOSIN 2 MG TABLET PO SCH (10:57)
[2023-12-20] MEDS: MONTELUKAST SODIUM 10 MG TABLET PO SCH (10:58)
[2023-12-20 14:05] LABS: BASOPHILS # (AUTO) 0.1 K/UL (0.0-0.2); BASOPHILS % (AUTO) 0.7 % (0.0-2.0); DIFFERENTIAL COMMENT 0; EOSINOPHILS # (AUTO) 0.3 K/uL (0.0-0.7); EOSINOPHILS % (AUTO) 3.3 % (0.0-7.0); HEMATOCRIT 39.4 % (31.2-41.9); LYMPHOCYTES % (AUTO) 30.4 % (20.5-51.5); MEAN CORPUSCULAR HEMOGLOBIN 28.7 uug (24.7-32.8); MEAN CORPUSCULAR HGB CONC 33 g/dL (32.3-35.6); MONOCYTES # (AUTO) 0.8 K/uL (0.1-1.30); MONOCYTES % (AUTO) 7.8 % (0.0-11.0); NEUTROPHILS # (AUTO) 5.7 K/uL (1.8-8.9); NEUTROPHILS % (AUTO) 57.8 % (38.5-71.5); PLATELET COUNT (AUTO) 341 K/uL (179-408); RED BLOOD CELL COUNT(AUTO) 4.53 MIL/uL (3.63-4.92); RED CELL DISTRIBUTION WIDTH 15.2 % (12.3-17.7); WHITE BLOOD COUNT (AUTO) 9.8 K/uL (3.8-11.8)
[2023-12-20 14:14] LABS: CARBON DIOXIDE 24 mmol/L (21-32); CHLORIDE 105 mmol/L (98-107); CREATININE 1.4 mg/dL (0.6-1.3); GLUCOSE 116 mg/dL (74-106); POTASSIUM 4.6 mmol/L (3.5-5.1); SODIUM SERUM 140 mmol/L (136-145); UREA NITROGEN, BLOOD 38 mg/dL (7-18)
[2023-12-20 14:18] LABS: CALCIUM 9.9 mg/dL (8.5-10.1)
[2023-12-20 16:24] VITALS: BP 146/73; TEMP 98.5; O2SAT 98
[2023-12-20] MEDS: ATORVASTATIN 40 MG TABLET PO SCH (17:51)
[2023-12-20 19:55] VITALS: BP 136/68; TEMP 98.1; O2SAT 96
[2023-12-20] MEDS: NITROFURANTOIN/NITROFURAN MAC 100 MG CAPSULE PO SCH (21:04)
[2023-12-20] MEDS: DONEPEZIL 5 MG TABLET PO SCH (21:04)
[2023-12-21 07:40] VITALS: BP 133/79; TEMP 98; O2SAT 96
[2023-12-21 08:17] LABS: BASOPHILS # (AUTO) 0.1 K/UL (0.0-0.2); BASOPHILS % (AUTO) 0.6 % (0.0-2.0); EOSINOPHILS # (AUTO) 0.3 K/uL (0.0-0.7); EOSINOPHILS % (AUTO) 2.3 % (0.0-7.0); HEMATOCRIT 38.4 % (31.2-41.9); HEMOGLOBIN 12.4 g/dL (10.9-14.3); LYMPHOCYTES # (AUTO) 2.2 K/uL (0.8-4.8); LYMPHOCYTES % (AUTO) 17.8 % (20.5-51.5); MEAN CORPUSCULAR HEMOGLOBIN 28.6 uug (24.7-32.8); MEAN CORPUSCULAR HGB CONC 32 g/dL (32.3-35.6); MEAN CORPUSCULAR VOLUME 88.6 fL (75.5-95.3); MONOCYTES # (AUTO) 0.5 K/uL (0.1-1.30); MONOCYTES % (AUTO) 4.3 % (0.0-11.0); NEUTROPHILS # (AUTO) 9.3 K/uL (1.8-8.9); PLATELET COUNT (AUTO) 293 K/uL (179-408); RED BLOOD CELL COUNT(AUTO) 4.33 MIL/uL (3.63-4.92); RED CELL DISTRIBUTION WIDTH 15.5 % (12.3-17.7); WHITE BLOOD COUNT (AUTO) 12.3 K/uL (3.8-11.8)
[2023-12-21 08:29] LABS: DIFFERENTIAL COMMENT 1
[2023-12-21 08:37] LABS: ALANINE AMINOTRANSFERASE 11 U/L (14-59); ALBUMIN 3.1 g/dL (3.4-5.0); ALKALINE PHOSPHATASE 62 U/L (50-136); ASPARTATE AMINOTRANSFERASE 11 U/L (15-37); BILIRUBIN,TOTAL 0.3 mg/dL (0.2-1.0); CALCIUM 9.1 mg/dL (8.5-10.1); CARBON DIOXIDE 25 mmol/L (21-32); CHLORIDE 106 mmol/L (98-107); CREATININE 1.3 mg/dL (0.6-1.3); GLUCOSE 121 mg/dL (74-106); POTASSIUM 4.3 mmol/L (3.5-5.1); SODIUM SERUM 140 mmol/L (136-145); TOTAL PROTEIN, SERUM 7.6 g/dL (6.4-8.2); UREA NITROGEN, BLOOD 36 mg/dL (7-18); VALPROIC ACID 62 ug/mL (50-100)
[2023-12-21] MEDS: GLUCERNA SHAKE 237 ML CAN PO SCH ×2 (08:51→17:27)
[2023-12-21] MEDS: SENNOSIDES 1 TABLET PO SCH (08:54)
[2023-12-21] MEDS: NITROFURANTOIN/NITROFURAN MAC 100 MG CAPSULE PO SCH ×2 (08:54→20:43)
[2023-12-21] MEDS: CALCIUM CARBONATE 500 MG TAB.CHEW PO SCH ×3 (08:54→17:26)
[2023-12-21] MEDS: DOXAZOSIN 2 MG TABLET PO SCH (08:55)
[2023-12-21] MEDS: DIVALPROEX 250 MG TABLET.DR PO SCH ×3 (08:56→20:43)
[2023-12-21] MEDS: MONTELUKAST SODIUM 10 MG TABLET PO SCH (08:56)
[2023-12-21] MEDS: METOPROLOL SUCCINATE XL 50 MG TAB.SR.24H PO SCH (08:57)
[2023-12-21] MEDS: FENOFIBRATE NANOCRYSTALLIZED 48 MG TABLET PO SCH (08:59)
[2023-12-21 15:34] VITALS: BP 123/65; TEMP 97.8; O2SAT 96
[2023-12-21] MEDS: ATORVASTATIN 40 MG TABLET PO SCH (17:25)
[2023-12-21 20:07] VITALS: BP 130/72; TEMP 98.1; O2SAT 96
[2023-12-21] MEDS: DONEPEZIL 5 MG TABLET PO SCH (20:43)
[2023-12-22 07:46] VITALS: BP 134/51; TEMP 98.2; O2SAT 99
[2023-12-22] MEDS: GLUCERNA SHAKE 237 ML CAN PO SCH (08:00)
[2023-12-22] MEDS: FENOFIBRATE NANOCRYSTALLIZED 48 MG TABLET PO SCH (10:47)
[2023-12-22] MEDS: DOXAZOSIN 2 MG TABLET PO SCH (10:47)
[2023-12-22] MEDS: CALCIUM CARBONATE 500 MG TAB.CHEW PO SCH ×2 (10:47→12:30)
[2023-12-22] MEDS: LORAZEPAM 1 MG TABLET PO PRN (10:47)
[2023-12-22] MEDS: DIVALPROEX 250 MG TABLET.DR PO SCH ×2 (10:47→13:00)
[2023-12-22] MEDS: MONTELUKAST SODIUM 10 MG TABLET PO SCH (10:48)
[2023-12-22 10:51] VITALS: BP 134/51
[2023-12-22] MEDS: SENNOSIDES 1 TABLET PO SCH (10:51)
[2023-12-22] MEDS: METOPROLOL SUCCINATE XL 50 MG TAB.SR.24H PO SCH (10:51)
[2023-12-22] MEDS: NITROFURANTOIN/NITROFURAN MAC 100 MG CAPSULE PO SCH (10:52)
== END 2023-12-22 14:48 | DRG 885 ==
LOC: ER 17:33 → GPS 17:41
PROVIDERS: ADMIT Psychiatry & Neurology Psychosomatic Medicine; ATTEND Internal Medicine
DX: F31.9 Bipolar disorder, unspecified (principal); N17.0 Acute kidney failure with tubular necrosis; F03.93 Unspecified dementia, unspecified severity, with mood disturbance; F03.94 Unspecified dementia, unspecified severity, with anxiety; N39.0 Urinary tract infection, site not specified; Z16.12 Extended spectrum beta lactamase (ESBL) resistance; E78.5 Hyperlipidemia, unspecified; K21.9 Gastro-esophageal reflux disease without esophagitis; B96.20 Unspecified Escherichia coli [E. coli] as the cause of diseases classified elsewhere; E66.9 Obesity, unspecified; Z68.27 Body mass index [BMI] 27.0-27.9, adult; Z91.148 Patient's other noncompliance with medication regimen for other reason; I10 Essential (primary) hypertension
CPT/HCPCS: 36415; 80164; 85025; J3490

== ENCOUNTER 2024-06-15 18:32 | Inpatient (IN) | payer MEDICARE, OTHER ==
[~2024-06-15] VITALS: Ht 175.3 cm; Wt 74.8 kg
[~2024-06-15 18:32] MED LIST changes: -DONE5TAB7 PO; -MELA1TAB17 PO
[2024-06-15 20:02] LABS: BASOPHILS # (AUTO) 0.1 K/UL (0.0-0.2); BASOPHILS % (AUTO) 0.9 % (0.0-2.0); EOSINOPHILS # (AUTO) 0.4 K/uL (0.0-0.7); EOSINOPHILS % (AUTO) 4.3 % (0.0-7.0); HEMATOCRIT 33.9 % (31.2-41.9); LYMPHOCYTES # (AUTO) 3.3 K/uL (0.8-4.8); LYMPHOCYTES % (AUTO) 34.8 % (20.5-51.5); MEAN CORPUSCULAR HEMOGLOBIN 28.2 uug (24.7-32.8); MEAN CORPUSCULAR HGB CONC 33 g/dL (32.3-35.6); MEAN CORPUSCULAR VOLUME 86.5 fL (75.5-95.3); MONOCYTES # (AUTO) 0.9 K/uL (0.1-1.30); MONOCYTES % (AUTO) 9.6 % (0.0-11.0); NEUTROPHILS # (AUTO) 4.8 K/uL (1.8-8.9); NEUTROPHILS % (AUTO) 50.4 % (38.5-71.5); PLATELET COUNT (AUTO) 299 K/uL (179-408); RED BLOOD CELL COUNT(AUTO) 3.91 MIL/uL (3.63-4.92); RED CELL DISTRIBUTION WIDTH 15.2 % (12.3-17.7); WHITE BLOOD COUNT (AUTO) 9.6 K/uL (3.8-11.8)
[2024-06-15 20:03] LABS: DIFFERENTIAL COMMENT 1
[2024-06-15 20:10] LABS: CALCIUM 8.7 mg/dL (8.5-10.1); CARBON DIOXIDE 24 mmol/L (21-32); CHLORIDE 104 mmol/L (98-107); CREATININE 1.3 mg/dL (0.6-1.3); GLUCOSE 115 mg/dL (74-106); POTASSIUM 4.6 mmol/L (3.5-5.1); SODIUM SERUM 140 mmol/L (136-145); UREA NITROGEN, BLOOD 26 mg/dL (7-18)
[2024-06-15 20:17] LABS: ETHANOL < 3 MG/DL (0-10)
[2024-06-15 20:18] LABS: ALANINE AMINOTRANSFERASE 12 U/L (14-59); ALBUMIN 2.6 g/dL (3.4-5.0); ALKALINE PHOSPHATASE 92 U/L (50-136); ASPARTATE AMINOTRANSFERASE 6 U/L (15-37); BILIRUBIN,DIRECT 0.1 mg/dL (0.0-0.2); BILIRUBIN,TOTAL 0.3 mg/dL (0.2-1.0); CREATINE KINASE, TOTAL 49 U/L (26-192); TOTAL PROTEIN, SERUM 7.1 g/dL (6.4-8.2)
[2024-06-15 23:28] LABS: *BILIRUBIN,URIN NEGATIVE (NEGATIVE); *BLOOD, URINE 1+ (NEGATIVE); *CLARITY,URINE CLOUDY (CLEAR); *COLOR,URINE YELLOW (YELLOW); *KETONES,URINE NEGATIVE (NEGATIVE); *PROTEIN,URINE 1+ (NEGATIVE); *UROBILINOGEN,URINE 0.2 E.U./dl (NORMAL); LEUKOCYTE ESTERASE ,URINE 3+ (NEGATIVE); NITRITE, URINE POSITIVE (NEGATIVE); UGLUCOSE NEGATIVE (NEGATIVE)
[2024-06-15 23:37] LABS: BACTERIA,URINE MODERATE /HPF (NONE SEEN); SQUAMOUS EPITHELIAL CELL,UR FEW /HPF (NONE SEEN); WBC,URINE 50-80 /HPF (0-3)
[2024-06-15 23:40] LABS: *AMPHETAMINE, URINE NEGATIVE (NEGATIVE); *BARBITURATE, URINE NEGATIVE (NEGATIVE); *BENZODIAZEPINE, URINE NEGATIVE (NEGATIVE); *CANNABINOID, URINE NEGATIVE (NEGATIVE); *COCCAINE, URINE NEGATIVE (NEGATIVE); *OPIATE, URINE NEGATIVE (NEGATIVE); *PHENCYCLIDINE SCREEN,URINE NEGATIVE (NEGATIVE)
[2024-06-15 23:41] LABS: FENTANYL, URINE NEGATIVE (NEGATIVE)
[2024-06-15] MEDS ORDERED: LIDOCAINE HCL 1% 20 ML VIAL ONE (23:46)
[2024-06-15] MEDS ORDERED: CEFTRIAXONE 1 G VIAL ONE (23:46)
[2024-06-15] MEDS: CEFTRIAXONE 1 G VIAL IM ONE (23:50)
[2024-06-16] MEDS ORDERED: GABA-536 PO (03:51)
[2024-06-16] MEDS ORDERED: METO-357 PO (03:51)
[2024-06-16] MEDS ORDERED: BUPR100T13 PO (03:51)
[2024-06-16] MEDS ORDERED: lispro insulin (03:51)
[2024-06-16] MEDS ORDERED: FERR325T24 PO (03:51)
[2024-06-16] MEDS ORDERED: FLUT1DIS29 IH (03:51)
[2024-06-16] MEDS ORDERED: FENO48TA6 PO (03:51)
[2024-06-16] MEDS ORDERED: ATOR20TA PO (03:51)
[2024-06-16] MEDS ORDERED: ALBU18HF2 IH (03:51)
[2024-06-16] MEDS ORDERED: ERGO2000 PO (03:51)
[2024-06-16] MEDS ORDERED: FAMO20TA8 PO (03:51)
[2024-06-16] MEDS ORDERED: SODI650T PO (03:51)
[2024-06-16] MEDS ORDERED: OXYB-58 PO (03:51)
[2024-06-16] MEDS ORDERED: MAGNESIUM HYDROXIDE 30 ML LIQUID UDC PO PRN (08:45)
[2024-06-16] MEDS ORDERED: ACETAMINOPHEN 325 MG TABLET PO PRN (08:45)
[2024-06-16] MEDS ORDERED: CLONAZEPAM 0.5 MG TABLET PO PRN (08:45)
[2024-06-16] MEDS ORDERED: MAG HYDROX/AL HYDROX/SIMETH 30 ML LIQUID UDC PO PRN (08:45)
[2024-06-16 09:00] VITALS: BP 156/74; TEMP 98; O2SAT 98
[2024-06-16] MEDS: BLOOD SUGAR DIAGNOSTIC 1 EACH STRIP VI ONE (09:14)
[2024-06-16] MEDS ORDERED: ACET-73 PO (10:53)
[2024-06-16] MEDS ORDERED: CHOL500062 PO (10:53)
[2024-06-16] MEDS ORDERED: ATOR80TA PO (10:53)
[2024-06-16] MEDS ORDERED: DONE5TAB7 PO (10:53)
[2024-06-16] MEDS ORDERED: MAGN400O6 PO (10:53)
[2024-06-16] MEDS ORDERED: BISA10SU61 RC (10:53)
[2024-06-16] MEDS ORDERED: DIVA250T PO (10:53)
[2024-06-16] MEDS ORDERED: MELA3CAP2 PO (10:53)
[2024-06-16] MEDS ORDERED: NA P133E RC (10:53)
[2024-06-16] MEDS ORDERED: LORA10TA7 PO (10:53)
[2024-06-16] MEDS ORDERED: ACET325T53 PO (10:53)
[2024-06-16 15:22] VITALS: BP 116/76; TEMP 98; O2SAT 98
[2024-06-16 20:00] VITALS: BP 173/75; TEMP 97.7; O2SAT 95
[2024-06-16] MEDS ORDERED: LORAZEPAM 0.5 MG TABLET PO PRN (21:15)
[2024-06-16] MEDS: TEMAZEPAM 7.5 MG CAPSULE PO PRN (22:18)
[2024-06-17 07:30] VITALS: BP 137/59; TEMP 98; O2SAT 94
[2024-06-17 07:43] LABS: ALANINE AMINOTRANSFERASE 12 U/L (14-59); ALBUMIN 2.6 g/dL (3.4-5.0); ALKALINE PHOSPHATASE 90 U/L (50-136); ASPARTATE AMINOTRANSFERASE 15 U/L (15-37); BILIRUBIN,TOTAL 0.4 mg/dL (0.2-1.0); CARBON DIOXIDE 25 mmol/L (21-32); CHLORIDE 105 mmol/L (98-107); CREATININE 1.2 mg/dL (0.6-1.3); GLUCOSE 110 mg/dL (74-106); POTASSIUM 4.2 mmol/L (3.5-5.1); SODIUM SERUM 138 mmol/L (136-145); TOTAL PROTEIN, SERUM 7.2 g/dL (6.4-8.2); UREA NITROGEN, BLOOD 22 mg/dL (7-18)
[2024-06-17] MEDS: DIVALPROEX 250 MG TABLET.DR PO SCH (10:37)
[2024-06-17] MEDS ORDERED: ACETAMINOPHEN 325 MG TABLET-SA PATIENTS-PAIN ONLY PO PRN (12:45)
[2024-06-17] MEDS ORDERED: MAGNESIUM HYDROXIDE 30 ML LIQUID UDC PO PRN ×2 (12:45→13:15)
[2024-06-17] MEDS ORDERED: CALCIUM CARBONATE 500 MG TAB.CHEW PO PRN (12:45)
[2024-06-17] MEDS ORDERED: PHENAZOPYRIDINE HCL 100 MG TABLET PO PRN ×2 (12:45→12:58)
[2024-06-17] MEDS ORDERED: BISACODYL 10 MG SUPP.RECT RC PRN (12:45)
[2024-06-17] MEDS ORDERED: FLEET ENEMA 133 ML BOTTLE RC PRN (12:45)
[2024-06-17] MEDS ORDERED: DIVALPROEX ER 250 MG TAB.SR.24H PO SCH (13:00)
[2024-06-17] MEDS ORDERED: ACETAMINOPHEN 325 MG TABLET PO PRN (13:15)
[2024-06-17] MEDS: SENNOSIDES 1 TABLET PO SCH (13:51)
[2024-06-17] MEDS: DONEPEZIL 5 MG TABLET PO SCH (14:21)
[2024-06-17] MEDS: METOPROLOL SUCCINATE XL 50 MG TAB.SR.24H PO SCH (16:36)
[2024-06-17 16:44] VITALS: BP 152/74; TEMP 98.2; O2SAT 95
[2024-06-17] MEDS ORDERED: CRANBERRY FRUIT 900 MG PO SCH (17:00)
[2024-06-17 20:00] VITALS: BP 152/72; TEMP 97.2
[2024-06-17] MEDS: MELATONIN 3 MG TABLET PO SCH (20:50)
[2024-06-17] MEDS: ATORVASTATIN 40 MG TABLET PO SCH (20:50)
[2024-06-17] MEDS ORDERED: Medication Not On Formulary EA (Melatonin 6 MG) PO SCH (21:00)
[2024-06-17] MEDS ORDERED: Medication Not On Formulary EA (Atorvastatin Calcium (Lipitor) 80 MG) PO SCH (21:00)
[2024-06-18 08:01] VITALS: BP 152/61; TEMP 98.7; O2SAT 97
[2024-06-18] MEDS ORDERED: Medication Not On Formulary EA (Cholecalciferol (Vitamin D3) (Vitamin D3) 5,000 UNIT) PO SCH (09:00)
[2024-06-18] MEDS ORDERED: DOXAZOSIN MESYLATE 4 MG PO SCH (09:00)
[2024-06-18] MEDS: CHOLECALCIFEROL 1,000 UNIT TABLET PO SCH (09:21)
[2024-06-18] MEDS: DOXAZOSIN 2 MG TABLET PO SCH (09:22)
[2024-06-18] MEDS: LORATADINE 10 MG TABLET PO SCH (09:23)
[2024-06-18 16:41] VITALS: BP 124/61; TEMP 98.5; O2SAT 97
[2024-06-19 08:26] VITALS: BP 146/61; TEMP 98.4; O2SAT 97
[2024-06-19] MEDS: DIVALPROEX 500 MG TABLET.DR PO SCH (08:37)
[2024-06-19] MEDS ORDERED: CEphaleXIN 500 MG CAPSULE PO SCH ×2 (14:00)
[2024-06-19] MEDS: CEphaleXIN 500 MG CAPSULE PO SCH (14:39)
[2024-06-19 16:15] VITALS: BP 121/46; TEMP 98.1; O2SAT 97
[2024-06-19 19:51] VITALS: BP 136/56; TEMP 98.1; O2SAT 96
[2024-06-20 07:30] VITALS: BP 148/69; TEMP 98; O2SAT 93
[2024-06-20 15:48] VITALS: BP 140/56; TEMP 98; O2SAT 96
[2024-06-20 20:14] VITALS: BP 140/60; TEMP 97.8; O2SAT 95
[2024-06-21 08:01] VITALS: BP 123/75; TEMP 98; O2SAT 96
[2024-06-21 16:42] VITALS: BP 142/81; TEMP 98; O2SAT 98
[2024-06-21 20:18] VITALS: BP 101/76; TEMP 97.8; O2SAT 96
[2024-06-22 08:02] VITALS: BP 96/51; TEMP 98; O2SAT 96
[2024-06-22] MEDS: DIVALPROEX SPRINKLE 125 MG CAP.SPRINK PO SCH (13:49)
[2024-06-22 15:09] VITALS: BP 113/62; TEMP 98; O2SAT 96
[2024-06-22 20:00] VITALS: BP 128/56; TEMP 98.8; O2SAT 96
[2024-06-23 07:55] LABS: BASOPHILS # (AUTO) 0.1 K/UL (0.0-0.2); BASOPHILS % (AUTO) 0.8 % (0.0-2.0); EOSINOPHILS # (AUTO) 0.4 K/uL (0.0-0.7); EOSINOPHILS % (AUTO) 5.5 % (0.0-7.0); HEMATOCRIT 35.9 % (31.2-41.9); HEMOGLOBIN 11.8 g/dL (10.9-14.3); LYMPHOCYTES # (AUTO) 2.7 K/uL (0.8-4.8); MEAN CORPUSCULAR HEMOGLOBIN 28.8 uug (24.7-32.8); MEAN CORPUSCULAR HGB CONC 33 g/dL (32.3-35.6); MEAN CORPUSCULAR VOLUME 87.8 fL (75.5-95.3); MONOCYTES # (AUTO) 0.7 K/uL (0.1-1.30); MONOCYTES % (AUTO) 9.3 % (0.0-11.0); NEUTROPHILS # (AUTO) 3.8 K/uL (1.8-8.9); NEUTROPHILS % (AUTO) 49.4 % (38.5-71.5); PLATELET COUNT (AUTO) 316 K/uL (179-408); RED BLOOD CELL COUNT(AUTO) 4.09 MIL/uL (3.63-4.92); RED CELL DISTRIBUTION WIDTH 15.2 % (12.3-17.7); WHITE BLOOD COUNT (AUTO) 7.7 K/uL (3.8-11.8)
[2024-06-23 07:56] VITALS: BP 143/97; TEMP 98; O2SAT 96
[2024-06-23 08:00] LABS: DIFFERENTIAL COMMENT 1
[2024-06-23] MEDS: CEphaleXIN 500 MG CAPSULE PO SCH (09:43)
[2024-06-23] MEDS: ENSURE WITH FIBER 237 ML LIQUID (CHOCOLATE) PO SCH (13:00)
[2024-06-23 20:00] VITALS: BP 121/42; TEMP 98; O2SAT 94
[2024-06-24 08:50] VITALS: BP 97/61; TEMP 97.9; O2SAT 98
[2024-06-24 16:03] VITALS: BP 141/70; TEMP 98; O2SAT 97
[2024-06-24 20:00] VITALS: BP 140/70; TEMP 98; O2SAT 96
[2024-06-25 09:12] VITALS: BP 129/53; TEMP 97.4; O2SAT 97
[2024-06-25 16:18] VITALS: BP 129/58; TEMP 98; O2SAT 97
[2024-06-25 20:23] VITALS: BP 134/55; TEMP 98.1; O2SAT 96
[2024-06-26 08:20] VITALS: BP 125/76; TEMP 97.6; O2SAT 98
[2024-06-26] MEDS: DIVALPROEX 250 MG TABLET.DR PO SCH (13:26)
[2024-06-26 16:14] VITALS: BP 138/50; TEMP 98; O2SAT 97
[2024-06-26 20:15] VITALS: BP 126/69; TEMP 97.8; O2SAT 96
[2024-06-27 08:35] VITALS: BP 143/68; TEMP 98.2; O2SAT 96
[2024-06-27 15:41] VITALS: BP 109/69; TEMP 98.2; O2SAT 96
[2024-06-27 20:08] VITALS: BP 126/76; TEMP 98.1; O2SAT 94
[2024-06-27] MEDS: EZETIMIBE 10 MG TABLET PO SCH (20:45)
[2024-06-27] MEDS: ATORVASTATIN 40 MG TABLET PO SCH (20:46)
[2024-06-27] MEDS: METOPROLOL SUCCINATE XL 50 MG TAB.SR.24H PO SCH (20:47)
[2024-06-27] MEDS ORDERED: NITROFURANTOIN/NITROFURAN MAC 100 MG CAPSULE PO SCH (21:00)
[2024-06-28 07:55] VITALS: BP 133/55; TEMP 98.2; O2SAT 96
[2024-06-28] MEDS: CHOLECALCIFEROL 1,000 UNIT TABLET PO SCH (08:46)
[2024-06-28 15:20] VITALS: BP 108/59; TEMP 98.2; O2SAT 94
[2024-06-28 20:06] VITALS: BP 136/58; TEMP 97.8; O2SAT 95
[2024-06-29 07:56] VITALS: BP 119/61; TEMP 98; O2SAT 96
[2024-06-29 09:21] VITALS: BP 114/61
== END 2024-06-29 10:15 | DRG 885 ==
LOC: ER 18:35 → GPS 06-16 07:44
PROVIDERS: ADMIT Psychiatry & Neurology Psychosomatic Medicine; ATTEND Student in an Organized Health Care Education/Training Program
DX: F31.9 Bipolar disorder, unspecified (principal); E44.0 Moderate protein-calorie malnutrition; N39.0 Urinary tract infection, site not specified; F02.83 Dementia in other diseases classified elsewhere, unspecified severity, with mood disturbance; F02.818 Dementia in other diseases classified elsewhere, unspecified severity, with other behavioral disturbance; E86.0 Dehydration; K21.9 Gastro-esophageal reflux disease without esophagitis; R26.9 Unspecified abnormalities of gait and mobility; Z91.148 Patient's other noncompliance with medication regimen for other reason; M62.81 Muscle weakness (generalized); H26.9 Unspecified cataract; E78.5 Hyperlipidemia, unspecified; I10 Essential (primary) hypertension; B96.20 Unspecified Escherichia coli [E. coli] as the cause of diseases classified elsewhere; I25.10 Atherosclerotic heart disease of native coronary artery without angina pectoris; N81.4 Uterovaginal prolapse, unspecified; G30.9 Alzheimer's disease, unspecified; R73.03 Prediabetes
CPT/HCPCS: 36415; 71045; 80164; 84443; 84484; 85025; 93005; C1758; G0480; J0696; J3490